=== PATIENT | male | born 1965 | race Caucasian/White ===

== ENCOUNTER 2021-10-22 22:18 | Inpatient (IN) | payer OTHER ==
[~2021-10-22] VITALS: Ht 170.2 cm; Wt 47.2 kg
[~2021-10-22 22:18] MED LIST: ACET-868 GT; ALBU2.5V13 IH; ATEN25TA; BACL10TA GT; BENZ2AMP3 GT; BISA10SU8 RC; DEXT1CAP3 GT; DOCU100C36 GT; ESOM40CA GT; HYDR-3973 PO; HYDR10SY12 GT; HYDR200T81 GT; LEVE500S9 GT; MAGN400O21 GT; MULT1TAB11 GT; TOPI50TA GT
--- NOTE | 2021-10-22 22:34 | NUR ---
MAY FROM [facility] BUN 112. PT AXO X0 ON TRACH COLLAR 2LPM. PT UNABLE TO PROVIDE ANY INFORMATION ON ASSESSMENT DUE TO MENTAL STATUS. PLACED ON MONITOR AND V/S WNL.
--- NOTE | 2021-10-22 22:41 | NUR ---
EMT AT BEDSIDE FOR EKG
--- NOTE | 2021-10-22 22:45 | NUR ---
20G IV ESTABLISHED RF. BLOOD DRAWN AND SENT TO LAB
--- NOTE | 2021-10-22 22:48 | NUR ---
JOAN COLLECTED AND SENT TO LAB
--- NOTE | 2021-10-22 22:55 | NUR ---
XRAY AT BEDSIDE
[2021-10-22 23:00] LABS: BASOPHILS % (AUTO) 0.2 % (0.0-2.0); EOSINOPHILS % (AUTO) 0.1 % (0.0-6.0); HEMATOCRIT 30 % (39-51); HEMOGLOBIN 9.9 g/dL (13.5-17.5); LYMPHOCYTES # (AUTO) 0.8 K/uL (0.8-4.8); LYMPHOCYTES % (AUTO) 8.5 % (20.0-44.0); MEAN CORPUSCULAR HGB CONC 33 g/dl (31.0-36.0); MEAN CORPUSCULAR VOLUME 91 fL (80-96); MONOCYTES # (AUTO) 0.8 K/uL (0.1-1.30); MONOCYTES % (AUTO) 7.7 % (2.0-12.0); NEUTROPHILS # (AUTO) 8.1 K/uL (1.8-8.9); NEUTROPHILS % (AUTO) 83.5 % (43.0-81.0); PLATELET COUNT (AUTO) 113 K/uL (150-450); RED BLOOD CELL COUNT(AUTO) 3.34 MIL/uL (4.5-6.0); WHITE BLOOD COUNT (AUTO) 9.7 K/uL (4.3-11.0)
--- NOTE | 2021-10-22 23:08 | NUR ---
URINE COLLECTED AND SENT TO LAB
[2021-10-22 23:14] LABS: ALBUMIN 2.3 g/dL (3.4-5.0); BILIRUBIN,DIRECT 0.1 mg/dL (0.0-0.2); BILIRUBIN,TOTAL 0.4 mg/dL (0.2-1.0); CALCIUM, SERUM 9.1 mg/dL (8.5-10.1); CREATININE 2.2 mg/dL (0.6-1.3); POTASSIUM 4.4 mmol/L (3.5-5.1); TOTAL PROTEIN, SERUM 7.9 g/dL (6.4-8.2)
--- NOTE | 2021-10-22 23:16 | NUR ---
BUN 116 DR. CARLOS MUHAMMAD AWARE
[2021-10-23 00:08] LABS: BILIRUBIN,URINE NEGATIVE (NEGATIVE); COLOR,URINE YELLOW (YELLOW); LEUKOCYTE ESTERASE ,URINE LARGE (NEGATIVE); NITRITE, URINE NEGATIVE (NEGATIVE); PH,URINE 8.5 (5.0-8.0); PROTEIN,URINE 100 mg/dl (NEGATIVE); UGLUCOSE NEGATIVE (NEGATIVE)
[2021-10-23 00:16] LABS: BACTERIA,URINE Moderate /HPF (None Seen); RBC,URINE 0-2 /HPF (0-2); SQUAMOUS EPITHELIAL CELL,UR Few /HPF (None Seen)
--- NOTE | 2021-10-23 01:31 | NUR ---
CALLED DR. AVERY ALVA AND REACH DIRECTOR OF AGRICULTURE PERRY HERNANDEZ NP. PER PERRY, DR. ALVA IS OUT OF TOWN AND GIVE PT TO [facility].
--- NOTE | 2021-10-23 01:33 | NUR ---
[facility] PAGED WAITING FOR CALL BACK FROM BRIGIDO JOHNSON
[2021-10-23] MEDS ORDERED: PIPERACILLIN /TAZOBACTAM 3.375 G in IV D5W 50 ML IV ONE ×2 (02:00→08:00)
--- NOTE | 2021-10-23 02:07 | NUR ---
EPIC PANEL PAGED
[2021-10-23] MEDS ORDERED: PIPERACILLIN /TAZOBACTAM 3.375 G VIAL IV ONE (02:15)
[2021-10-23] MEDS ORDERED: IV NS 0.9% 1,000 ML IV PRN (03:00)
[2021-10-23] MEDS ORDERED: Z GUARD REMEDY 4 OZ OINT TP PRN (03:00)
[2021-10-23] MEDS ORDERED: ONDANSETRON HCL/PF 4 MG/2 ML VIAL IVP PRN (03:00)
[2021-10-23] MEDS ORDERED: ALBUTEROL FS 2.5 MG/0.5 ML VIAL.NEB IH SCH (03:00)
--- NOTE | 2021-10-23 03:34 | NUR ---
REPORT GIVENT MISTY WOMACK RN FOR CATHLEEN
[2021-10-23] MEDS ORDERED: hydrOXYzine 10 MG TABLET ONE (03:43)
[2021-10-23] MEDS ORDERED: LEVETIRACETAM SOL (5 ML) 100 MG/ML UDC ONE (03:43)
[2021-10-23] MEDS ORDERED: ACETAMINOPHEN 325 MG TABLET ONE (03:44)
[2021-10-23] MEDS: LEVETIRACETAM SOL (5 ML) 100 MG/ML UDC PO SCH ×3 (03:50→20:48)
[2021-10-23] MEDS: hydrOXYzine HCL SYRUP 10 MG/5 ML UDC GT SCH ×4 (03:50→20:48)
[2021-10-23] MEDS: ACETAMINOPHEN 325 MG TABLET PO PRN (04:02)
--- NOTE | 2021-10-23 04:29 | NUR ---
pt transported to room 308 on cardiac per acls in stable condition
[2021-10-23 04:30] VITALS: BP 133/76
--- NOTE | 2021-10-23 05:08 | NUR ---
MEDICATION NON ADMINISTERED Atarax not given, not due for q8H dose.
--- NOTE | 2021-10-23 05:47 | NUR ---
ADMISSION 0430 Patient arrived to unit. Skin checked done, skin photos in the chart. Patient non verbal. Trach intact, T-piece to cool aerosol Oxygen 5L FiO2 28%. Patient has fever 100.4F cooling measures provided, was given Tylenol prior arrival to unit. Right wrist peripheral IV line, started IVF infusing. Sinus Tach in the Tele monitor HR 102. Suction secretion trach/oral, mucus large. Abdomen presence of GT, clamped. Turned and repositioned, sonia feet wound/scab. Wound consult. Will endorse to oncoming RN.
[2021-10-23] MEDS: BACLOFEN (10 MG) 10 MG TABLET GT SCH ×3 (06:49→17:49)
--- NOTE | 2021-10-23 07:00 | NUR ---
GORE INSERTER OPENING NOTES PATIENT LAYING IN BED, A/O X 0, TOLERATING WELL ON 5 LPM FiO2 28% FLOWING VIA T-PIECE, R WRIST # 20 G IV WITH NS INFUSING @ 100 ML/HR. TELE MONITOR IN PLACE READING NSR 72. NO S/S OF PAIN OR DISCOMFORT AT THIS TIME. G-TUBE IN PLACE, CLAMPED. SAFETY MEASURES IN PLACE: BED IN LOWEST LOCKED POSITION, SIDE RAILS UP X 2, CALL LIGHT WITHIN REACH. WILL CONTINUE TO MONITOR.
[2021-10-23 07:26] LABS: EOSINOPHILS % (AUTO) 0.6 % (0.0-6.0); HEMATOCRIT 33 % (39-51); HEMOGLOBIN 11.1 g/dL (13.5-17.5); LYMPHOCYTES # (AUTO) 0.2 K/uL (0.8-4.8); LYMPHOCYTES % (AUTO) 2.3 % (20.0-44.0); MEAN CORPUSCULAR HGB CONC 33 g/dl (31.0-36.0); MEAN CORPUSCULAR VOLUME 96 fL (80-96); MONOCYTES # (AUTO) 0.6 K/uL (0.1-1.30); MONOCYTES % (AUTO) 7.9 % (2.0-12.0); NEUTROPHILS # (AUTO) 6.5 K/uL (1.8-8.9); NEUTROPHILS % (AUTO) 89.2 % (43.0-81.0); RED BLOOD CELL COUNT(AUTO) 3.46 MIL/uL (4.5-6.0); WHITE BLOOD COUNT (AUTO) 7.3 K/uL (4.3-11.0)
[2021-10-23 07:30] LABS: PLATELET COUNT (AUTO) 44 K/uL (150-450)
[2021-10-23 08:00] VITALS: BP 145/73
[2021-10-23 08:19] LABS: CALCIUM, SERUM 9.5 mg/dL (8.5-10.1); CREATININE 2.1 mg/dL (0.6-1.3); MAGNESIUM 3.8 mg/dL (1.8-2.4); PHOSPHORUS 2.9 mg/dL (2.5-4.9); POTASSIUM 6.1 mmol/L (3.5-5.1)
[2021-10-23] MEDS: PIPERACILLIN /TAZOBACTAM 3.375 G in IV D5W 100 ML IV SCH ×2 (08:44→15:12)
[2021-10-23] MEDS: BENZTROPINE MESYLATE (1 MG) 1 MG TABLET PO SCH ×3 (08:45→16:29)
[2021-10-23] MEDS: ATENOLOL 25 MG TABLET GT SCH (08:45)
[2021-10-23] MEDS: MULTIVITAMIN/LUTEIN/MINERALS 1 TAB PO SCH (08:46)
[2021-10-23] MEDS: TOPIRAMATE 25 MG TABLET PO SCH ×2 (08:46→16:29)
[2021-10-23] MEDS: PANTOPRAZOLE 40 MG/PACK PACK PO SCH (08:46)
[2021-10-23] MEDS: HYDROXYCHLOROQUINE 200 MG TABLET GT SCH ×2 (08:47→16:33)
[2021-10-23] MEDS: MAGNESIUM HYDROXIDE 30 ML UDC GT SCH (08:47)
[2021-10-23] MEDS: DOCUSATE SODIUM 100 MG CAPSULE PO SCH (08:47)
[2021-10-23] MEDS ORDERED: Medication Not On Formulary EA (Dextromethorphan Hbr/Quinidine (Nuedexta 20-10 Mg Capsul GT SCH (09:00)
--- NOTE | 2021-10-23 09:00 | NUR ---
CLIP WRAPPER NOTES RECEIVED CRITICAL VALUE PLATELET 44, REPORTED TO MD NIDA VARELA. NO NEW ORDERS AT THIS TIME.
[2021-10-23] MEDS ORDERED: ALBU8.5H8 IH ×2 (09:37)
[2021-10-23] MEDS ORDERED: OMEP20CA15 GT (09:37)
[2021-10-23] MEDS ORDERED: AMLO2.5T4 GT (09:37)
[2021-10-23] MEDS ORDERED: CHLO473M3 MM (09:37)
[2021-10-23] MEDS ORDERED: QUET50TA GT (09:37)
[2021-10-23] MEDS ORDERED: FERR325T23 GT (09:37)
[2021-10-23] MEDS ORDERED: TRAM50TA2 GT (09:37)
[2021-10-23 09:48] LABS: LYMPHOCYTES % (MANUAL) 12 % (16-48); MONOCYTES % (MANUAL) 2 % (0-11.0); NEUTROPHILS % (MANUAL) 86 (42-76)
[2021-10-23] MEDS: JEVITY 1.2 CAL 1,000 ML BOTTLE GT PRN (12:01)
[2021-10-23] MEDS: IV 1/2NS 1000 ML 1,000 ML IV PRN (12:20)
[2021-10-23 16:00] VITALS: BP 123/56
--- NOTE | 2021-10-23 19:37 | NUR ---
RN OPENING NOTES RECEIVED PT IN BED, EYES OPEN, NONVERBAL. AOx1. ON TRACH PIECE 5 L/MIN AND TOLERATING WELL. NO SOB NOTED. NO S/SX OF RESPIRATORY DISTRESS NOTED. TELE MONITOR DETECTS SINUS RHYTHM. IV ACCESS IN RFA #20G RUNNING 1/2 NS @ 100 ML/HR. G-TUBE IN PLACE WITH JEVITY 1.2 RUNNING @ 60 ML/HR. SAFETY PRECAUTIONS IN PLACE: BED IN LOWEST, LOCKED POSITION, SIDERAILS UPx2, AND BRAKES ON. PER SUBACUTE NURSE, FAMILY MADE AWARE OF TRANSFER. TABLE AND CALL LIGHT WITHIN REACH. ALL NEEDS MET AT THIS TIME.
[2021-10-23 20:00] VITALS: BP 136/60
[2021-10-24] VITALS: BP 113/58
[2021-10-24] MEDS: PIPERACILLIN /TAZOBACTAM 3.375 G in IV D5W 100 ML IV SCH ×3 (00:44→16:13)
[2021-10-24] MEDS: BACLOFEN (10 MG) 10 MG TABLET GT SCH ×4 (00:46→17:43)
[2021-10-24 04:00] VITALS: BP 118/65
[2021-10-24] MEDS: hydrOXYzine HCL SYRUP 10 MG/5 ML UDC GT SCH ×3 (05:10→21:46)
[2021-10-24 06:03] LABS: EOSINOPHILS % (AUTO) 0.2 % (0.0-6.0); HEMATOCRIT 32 % (39-51); LYMPHOCYTES # (AUTO) 1.1 K/uL (0.8-4.8); LYMPHOCYTES % (AUTO) 9.7 % (20.0-44.0); MEAN CORPUSCULAR HGB CONC 31 g/dl (31.0-36.0); MEAN CORPUSCULAR VOLUME 92 fL (80-96); MONOCYTES # (AUTO) 1.2 K/uL (0.1-1.30); MONOCYTES % (AUTO) 9.9 % (2.0-12.0); NEUTROPHILS # (AUTO) 9.4 K/uL (1.8-8.9); NEUTROPHILS % (AUTO) 80.2 % (43.0-81.0); PLATELET COUNT (AUTO) 129 K/uL (150-450); RED BLOOD CELL COUNT(AUTO) 3.47 MIL/uL (4.5-6.0); WHITE BLOOD COUNT (AUTO) 11.7 K/uL (4.3-11.0)
[2021-10-24 06:19] LABS: CALCIUM, SERUM 9.3 mg/dL (8.5-10.1); CREATININE 2.2 mg/dL (0.6-1.3); MAGNESIUM 3.3 mg/dL (1.8-2.4); PHOSPHORUS 3.4 mg/dL (2.5-4.9); POTASSIUM 4.1 mmol/L (3.5-5.1)
--- NOTE | 2021-10-24 07:00 | NUR ---
RN CLOSING NOTES PT IN BED, EYES OPEN, NONVERBAL. AOx1. ON TRACH PIECE 5 L/MIN AND TOLERATING WELL. NO SOB NOTED. NO S/SX OF RESPIRATORY DISTRESS NOTED. TELE MONITOR DETECTS SINUS RHYTHM. IV ACCESS IN RFA #20G RUNNING 1/2 NS @ 100 ML/HR. G-TUBE IN PLACE WITH JEVITY 1.2 RUNNING @ 60 ML/HR. ALL ORDERS CARRIED OUT. ALL NEEDS MET. PT KEPT CLEAN AND DRY. SAFETY PRECAUTIONS IN PLACE: BED IN LOWEST, LOCKED POSITION, SIDERAILS UPx2, AND BRAKES ON. PER SUBACUTE NURSE, FAMILY MADE AWARE OF TRANSFER. TABLE AND CALL LIGHT WITHIN REACH. WILL ENDORSE TO ONCOMING SHIFT FOR CATHLEEN.
--- NOTE | 2021-10-24 07:10 | NUR ---
PANEL CUTTER OPENING NOTES PATIENT LAYING IN BED, ALERT BUT NON-VERBAL PER BASELINE, TOLERATING WELL ON TRACH T-PIECE AT 5 LPM O2 COOL AEROSOL. TELE MONITOR READING SR. RFA # 20 G IV INFUSING 1/2 NS @ 100 ML/HR. G-TUBE IN PLACE WITH FEEDING PAUSED AT THIS TIME. SAFETY MEASURES IN PLACE: BED IN LOWEST LOCKED POSITION, SIDE RAILS UP X 2, CALL LIGHT WITHIN REACH. WILL CONTINUE TO MONITOR.
--- NOTE | 2021-10-24 08:38 | NUR ---
LOTTERY OFFICE MANAGER NOTES CHEST XR PERFORMED DUE TO PATIENT COUGHING UP FLUID DURING FACILITIES MAINTENANCE SUPERVISOR. CXR RESULTED WITH NORMAL IMPRESSION. TUBE FEEDING RESUMED @ 20 ML/HR. Addendum: 10/24/21 at 1422 by BERNABE MORIN RN JEVITY 1.2 GINA TUBE FEEDING
[2021-10-24] MEDS: ATENOLOL 25 MG TABLET GT SCH (08:42)
[2021-10-24] MEDS: MULTIVITAMIN/LUTEIN/MINERALS 1 TAB PO SCH (08:42)
[2021-10-24] MEDS: HYDROXYCHLOROQUINE 200 MG TABLET GT SCH ×2 (08:43→16:38)
[2021-10-24] MEDS: MAGNESIUM HYDROXIDE 30 ML UDC GT SCH (08:43)
[2021-10-24] MEDS: TOPIRAMATE 25 MG TABLET PO SCH ×2 (08:43→16:26)
[2021-10-24] MEDS: DOCUSATE SODIUM 100 MG CAPSULE PO SCH (08:43)
[2021-10-24] MEDS: BENZTROPINE MESYLATE (1 MG) 1 MG TABLET PO SCH ×3 (08:43→16:26)
[2021-10-24] MEDS: LEVETIRACETAM SOL (5 ML) 100 MG/ML UDC PO SCH ×2 (08:43→21:46)
[2021-10-24] MEDS: PANTOPRAZOLE 40 MG/PACK PACK PO SCH (08:43)
--- NOTE | 2021-10-24 13:43 | NUR ---
TRANSITIONAL KINDERGARTEN TEACHER NOTES PATIENT TUBE FEEDING WAS INCREASED GRADUALLY OVER SEVERAL HOURS, PATIENT NOW TOLERATING WELL AT 40 ML/HR. WILL CONTINUE TO ADVANCE RATE TOLERATED.
--- NOTE | 2021-10-24 19:30 | NUR ---
SALES MANAGER [place] OPENING NOTE RECEIVED PATIENT IN BED. OBTUNDED, EYES OPEN. ON T-PIECE IN 5LPM OF AEROSOL, EXHIBITING A LOT OF PHLEGM -- SUCTIONED FOR NOW. NOT EXHIBITING PAIN VIA FLACC. TELE MONITOR READING SR WITH 95 BPM. TUBE FEEDING OFF AT THIS TIME-- WILL RESUME @2230 ENDORSED. R. FA #20G RUNNING [employer] STILL AT THIS TIME. SAFETY IN PLACE. WILL CONTINUE WITH PATIENT'S PLAN OF CARE.
[2021-10-25] MEDS: BACLOFEN (10 MG) 10 MG TABLET GT SCH ×4 (00:11→18:25)
[2021-10-25] MEDS: PIPERACILLIN /TAZOBACTAM 3.375 G in IV D5W 100 ML IV SCH ×2 (00:14→09:58)
[2021-10-25] MEDS: ACETAMINOPHEN 325 MG TABLET PO PRN (03:27)
--- NOTE | 2021-10-25 03:37 | NUR ---
PATIENT EXHIBITING PAIN VIA FLACC. FREQUENT FROWN, RESTLESS. GIVEN TYLENOL PRN ORDERED.
[2021-10-25 04:00] VITALS: BP 111/52
[2021-10-25] MEDS: hydrOXYzine HCL SYRUP 10 MG/5 ML UDC GT SCH ×3 (05:09→21:56)
--- NOTE | 2021-10-25 07:12 | NUR ---
PATHOLOGIST CLOSING NOTE ALL NEEDS ATTENDED. WILL GIVE REPORT TO MORNING RN FOR CONTINUITY OF CARE.
--- NOTE | 2021-10-25 07:50 | NUR ---
CALENDER MACHINE OPERATOR HELPER OPENING NOTE RECEIVED PATIENT IN BED AWAKE. OBTUNDED, EYES OPEN. ON T-PIECE IN 5LPM OF AEROSOL. NO S/S OF SOB AND ACUTE DISTRESS AT THE MOMENT. NOT EXHIBITING PAIN VIA FLACC. TELE MONITOR READING SR WITH HR = 93BPM. IV ACCESS AT RFA #20 INFUSING 1/2 NS @ 100 ML/HR. NOTED G-TUBE FEEDING JEVITY 1.2@ 60ML/HR, OFF AT 1830 [address]ED[address] SAFETY MEASURES IN PLACE,WILL CONTINUE WITH PATIENT'S PLAN OF CARE.
[2021-10-25] MEDS: LEVETIRACETAM SOL (5 ML) 100 MG/ML UDC PO SCH ×2 (09:35→21:57)
[2021-10-25] MEDS: MULTIVITAMIN/LUTEIN/MINERALS 1 TAB PO SCH (09:35)
[2021-10-25] MEDS: ATENOLOL 25 MG TABLET GT SCH (09:35)
[2021-10-25] MEDS: DOCUSATE SODIUM 100 MG CAPSULE PO SCH (09:35)
[2021-10-25] MEDS: PANTOPRAZOLE 40 MG/PACK PACK PO SCH (09:35)
[2021-10-25] MEDS: MAGNESIUM HYDROXIDE 30 ML UDC GT SCH (09:35)
[2021-10-25] MEDS: TOPIRAMATE 25 MG TABLET PO SCH ×2 (09:35→18:25)
[2021-10-25] MEDS: BENZTROPINE MESYLATE (1 MG) 1 MG TABLET PO SCH ×3 (09:35→18:25)
[2021-10-25] MEDS: HYDROXYCHLOROQUINE 200 MG TABLET GT SCH ×2 (10:01→18:25)
[2021-10-25 10:02] VITALS: BP 128/63
[2021-10-25] MEDS: HEPARIN SODIUM, PORCINE 5000 UNITS/1 ML VIAL SQ SCH ×2 (10:03→18:26)
[2021-10-25 13:19] VITALS: BP 109/61
[2021-10-25] MEDS: JEVITY 1.2 CAL 1,000 ML BOTTLE GT PRN (15:50)
[2021-10-25 17:53] VITALS: BP 123/55
[2021-10-25] MEDS: IV 1/2NS 1000 ML 1,000 ML IV PRN (19:47)
[2021-10-25 20:00] VITALS: BP 124/51
--- NOTE | 2021-10-25 20:00 | NUR ---
RN NOTE: AWAKE. EYES OPEN SPONTANEOUSLY. MOIST ORAL MUCOSA. UNLABORED BREATHING. TRACH WITH WITH COOL AEROSOL AT 5 LPM O2. TRACH AND ORAL SECRETIONS WHITE MODERATE THICK. SUCTIONED NEEDED. HOB ELEVATED 45 DEGREE ANGLE. GT FEEDING OFF AT THIS TIME. GT IN PLACE PATENT AND NO RESIDUAL. IV SITE ON RIGHT FOREARM G20 RUNNING IVF 1/2 NS AT 100ML/HR. BILATERAL HALF SIDE RAILS UP X2. BED LOCKED, EXIT ALARM ON, IN LOW POSITION. FALL PRECAUTIONS MAINTAINED. CALL LIGHT IN REACH.
--- NOTE | 2021-10-25 20:20 | NUR ---
COSMETICIAN CLOSING NOTE PATIENT IN BED AWAKE. OBTUNDED, EYES OPEN. ON T-PIECE IN 5LPM OF AEROSOL. NO S/S OF SOB AND ACUTE DISTRESS AT THE MOMENT. NOT EXHIBITING PAIN VIA FLACC. TELE MONITOR READING SR WITH HR =91 BPM. IV ACCESS AT RFA #20 INFUSING 1/2 NS @ 100 ML/HR. NOTED G-TUBE FEEDING JEVITY 1.2@ 60ML/HR, OFF AT 1830 ENDORSED. SAFETY MEASURES IN PLACE, ENDORSED TO PM SHIFT.
[2021-10-25] MEDS ORDERED: MEROPENEM 1 G in IV NS 0.9% 100 ML IV SCH (21:00)
[2021-10-25] MEDS ORDERED: MEROPENEM 500 MG VIAL IV ONE (22:26)
[2021-10-25] MEDS: MEROPENEM 500 MG in IV NS 0.9% 50 ML IV SCH (23:25)
[2021-10-26] VITALS: BP 118/57
[2021-10-26] MEDS: BACLOFEN (10 MG) 10 MG TABLET GT SCH ×4 (00:03→18:24)
[2021-10-26 04:00] VITALS: BP 135/52
[2021-10-26] MEDS: hydrOXYzine HCL SYRUP 10 MG/5 ML UDC GT SCH ×3 (05:10→21:00)
[2021-10-26] MEDS: ACETAMINOPHEN 325 MG TABLET PO PRN (05:12)
--- NOTE | 2021-10-26 06:34 | NUR ---
RN CLOSING NOTE: AWAKE. EYES OPEN SPONTANEOUSLY. MOIST ORAL MUCOSA. UNLABORED BREATHING. TRACH WITH WITH COOL AEROSOL AT 5 LPM O2. TRACH AND ORAL SECRETIONS WHITE MODERATE THICK. SUCTIONED NEEDED. HOB ELEVATED 45 DEGREE ANGLE. GT FEEDING ON RUNNING JEVITY 1.2 AT 60ML/HR. AT THIS TIME. GT IN PLACE PATENT AND NO RESIDUAL. ASPIRATION PRECAUTIONS MAINTAINED. IV SITE ON RIGHT FOREARM G20 RUNNING IVF 1/2 NS AT 100ML/HR. KEPT CLEAN AND DRY. TURNED AND REPOSITIONED. BILATERAL HALF SIDE RAILS UP X2. BED LOCKED, EXIT ALARM ON, IN LOW POSITION. FALL PRECAUTIONS MAINTAINED. CALL LIGHT IN REACH.
[2021-10-26] MEDS: IV 1/2NS 1000 ML 1,000 ML IV PRN (06:44)
--- NOTE | 2021-10-26 07:41 | NUR ---
SURGICAL ORDERLY OPENING NOTE RECEIVED PATIENT IN BED AWAKE. EYES OPEN. ON T-PIECE IN 5LPM OF AEROSOL. NO S/S OF SOB AND ACUTE DISTRESS AT THE MOMENT. NOT EXHIBITING PAIN VIA FLACC. TELE MONITOR READING SR WITH HR = 69BPM. IV ACCESS AT RFA #20 INFUSING 1/2 NS @ 100 ML/HR. NOTED G-TUBE FEEDING JEVITY 1.2@ 60ML/HR, WILL TURN OFF 1830 ENDORSED. SAFETY MEASURES IN PLACE,WILL CONTINUE WITH PATIENT'S PLAN OF CARE.
[2021-10-26 08:00] VITALS: BP 119/61
--- NOTE | 2021-10-26 08:20 | NUR ---
WOUND CARE CONSULT: PT PRESENTS WITH SACRAL INTACT DEEP TISSUE INJURY WITH SCARRING, DRY WOUNDS TO BACK, DRY LESION TO RT FOREHEAD AND DRY WOUNDS/SCABS TO FEET, ALL PRESENT ON ADMISSION. DR MANSFIELD NOTIFIED OF SURGICAL CONSULT REQUEST. RECOMMENDATIONS MADE FOR SKIN PROTECTION. DISCUSSED WITH NURSING STAFF. PT IS ON JULIANA ISOFLEX LOW AIRLOSS BED. MD IN AGREEMENT WITH PLAN OF CARE.
[2021-10-26] MEDS: PANTOPRAZOLE 40 MG/PACK PACK PO SCH (08:52)
[2021-10-26] MEDS: MULTIVITAMIN/LUTEIN/MINERALS 1 TAB PO SCH (08:52)
[2021-10-26] MEDS: BENZTROPINE MESYLATE (1 MG) 1 MG TABLET PO SCH ×3 (08:52→18:20)
[2021-10-26] MEDS: TOPIRAMATE 25 MG TABLET PO SCH ×2 (08:52→18:20)
[2021-10-26] MEDS: ATENOLOL 25 MG TABLET GT SCH (08:53)
[2021-10-26] MEDS: HYDROXYCHLOROQUINE 200 MG TABLET GT SCH (08:54)
[2021-10-26] MEDS: LEVETIRACETAM SOL (5 ML) 100 MG/ML UDC PO SCH ×2 (08:55→21:37)
[2021-10-26] MEDS: MAGNESIUM HYDROXIDE 30 ML UDC GT SCH (08:55)
[2021-10-26] MEDS: HEPARIN SODIUM, PORCINE 5000 UNITS/1 ML VIAL SQ SCH ×2 (08:56→18:21)
[2021-10-26 09:05] LABS: BASOPHILS % (AUTO) 0.1 % (0.0-2.0); EOSINOPHILS % (AUTO) 2.7 % (0.0-6.0); HEMATOCRIT 28 % (39-51); LYMPHOCYTES % (AUTO) 13.9 % (20.0-44.0); MEAN CORPUSCULAR HGB CONC 33 g/dl (31.0-36.0); MEAN CORPUSCULAR VOLUME 91 fL (80-96); MONOCYTES # (AUTO) 0.8 K/uL (0.1-1.30); MONOCYTES % (AUTO) 11.5 % (2.0-12.0); NEUTROPHILS # (AUTO) 5.3 K/uL (1.8-8.9); NEUTROPHILS % (AUTO) 71.8 % (43.0-81.0); PLATELET COUNT (AUTO) 97 K/uL (150-450); RED BLOOD CELL COUNT(AUTO) 3.05 MIL/uL (4.5-6.0); WHITE BLOOD COUNT (AUTO) 7.4 K/uL (4.3-11.0)
[2021-10-26] MEDS: MEROPENEM 500 MG in IV NS 0.9% 50 ML IV SCH ×2 (09:14→21:37)
[2021-10-26] MEDS: DOCUSATE SODIUM 100 MG CAPSULE PO SCH (09:14)
[2021-10-26 09:16] LABS: CALCIUM, SERUM 8.4 mg/dL (8.5-10.1); CREATININE 1.6 mg/dL (0.6-1.3); POTASSIUM 3.9 mmol/L (3.5-5.1)
[2021-10-26 12:00] VITALS: BP 122/76
[2021-10-26 15:08] LABS: BASOPHILS % (MANUAL) 0 % (0.0-2.0); EOSINOPHILS % (MANUAL) 3 % (0-4); LYMPHOCYTES % (MANUAL) 15 % (16-48); MONOCYTES % (MANUAL) 10 % (0-11.0); NEUTROPHILS % (MANUAL) 72 (42-76)
[2021-10-26 16:00] VITALS: BP 110/66
--- NOTE | 2021-10-26 19:17 | NUR ---
FORMULATION CHEMIST CLOSING NOTE: PATIENT IN BED AWAKE EYES OPEN. ON T-PIECE IN 5LPM OF AEROSOL. NO S/S OF SOB AND ACUTE DISTRESS AT THE MOMENT. NOT EXHIBITING PAIN VIA FLACC. TELE MONITOR READING SR WITH HR = 64BPM. IV ACCESS AT RFA #20, SL, PATENT AND FLUSHING. NOTED G-TUBE FEEDING JEVITY 1.2@ 60ML/HR, TURNED OFF 1830 ENDORSED. ALL MEDS GIVEN, MADE PT COMFORTABLE AND CLEAN. SAFETY MEASURES IN PLACE, WILL ENDORSE TO PM SHIFT.
[2021-10-26 20:00] VITALS: BP 123/59
--- NOTE | 2021-10-26 20:00 | NUR ---
LABORER HOISTING NOTES RECEIVED ON BED,NON VERBAL,OPEN EYES,ON TRACH TO COOL AEROSOL,5L/,FIO2 28%,BREATHING NON LABORED.GT FEEDING OFF THIS TIME,ON AT 2230.FLUSHED WITH WATER,INTACT AND PATENT.NO RESIDUAL VOLUME NOTED.PRESENT IVF 1/2 NS AT 100ML/HR RATE,INFUSING ON RIGHT FORE ARM SALINE LINE LOCK VIA IV PUMP,SITE PATENT.HOB ELEVATED FOR ASPIRATION PRECAUTION.CALL LIGHT IN REACH,NEEDS ANTICIPATED.
--- NOTE | 2021-10-26 21:00 | NUR ---
STATE TROOPER NOTES ATARAX 25MG/GT NOT GIVEN.DRUGS NOT AVAILABLE.IN THE OMNICELLE.REQUEST MEDS TO THE NURSING MANAGER INVESTMENT BANKING,AND SAYS,NO ATARAX SYRUP AVAILABLE.
[2021-10-26] MEDS: JEVITY 1.2 CAL 1,000 ML BOTTLE GT PRN (22:37)
[2021-10-27] VITALS: BP 114/72
[2021-10-27] MEDS: BACLOFEN (10 MG) 10 MG TABLET GT SCH ×4 (00:01→17:15)
[2021-10-27 04:00] VITALS: BP 110/56
--- NOTE | 2021-10-27 04:30 | NUR ---
SAFETY SCIENTIST NOTES MORNING CARE RENDERED,SUCTION MUCUS NEEDED,REPOSITIONED
[2021-10-27] MEDS: IV 1/2NS 1000 ML 1,000 ML IV PRN (04:58)
[2021-10-27] MEDS: hydrOXYzine HCL SYRUP 10 MG/5 ML UDC GT SCH ×2 (05:00→13:42)
--- NOTE | 2021-10-27 06:22 | NUR ---
HANDKERCHIEF MAKER NOTES ON BED AWAKE,NON VERBAL,CALM AND QUIET,GT FEEDING TOLERATED WELL,NO DIARRHEA NOTED,HOB ELEVATED.NEGATIVE FOR ASPIRATION,IN NO ACUTE DISTRESS.
--- NOTE | 2021-10-27 07:04 | NUR ---
HOME ECONOMIST CONSUMER SERVICE OPENING NOTES RECEIVED PATIENT AWAKE IN BED IN NO ACUTE SIGNS OF DISTRESS. HOB ELEVATED. PT IS NON-VERBAL AND ON T-PIECE IN 5LPM OF COOL AEROSOL, TOLERATING WELL WITH NO S/S OF SOB NOTED. PT IS CALM WITH NO S/S OF PAIN LIKE GRIMACING OR MOANING NOTED AT THIS TIME. TELE MONITOR READING SHOWS NSR WITH HR OF 70 BPM, NO S/S OF CARDIAC DISTRESS NOTED. IV ACCESS ON RFA #20G INTACT AND INFUSING 1/2 NS @ 100 ML/HR. G-TUBE IN PLACE WITH FEEDING OF JEVITY 1.2@ 60ML/HR, TOLERATING WELL. ASPIRATION PRECAUTIONS MAINTAINED. SAFETY MEASURES IN PLACE: BED IN LOWEST LOCKED POSITION, SIDE-RAILS UP X3M BED ALARM ON AND CALL LIGHT W/I EASY REACH. WILL CONTINUE WITH PLAN OF CARE.
[2021-10-27 08:00] VITALS: BP 123/68
[2021-10-27] MEDS: LEVETIRACETAM SOL (5 ML) 100 MG/ML UDC PO SCH (08:29)
[2021-10-27] MEDS: MULTIVITAMIN/LUTEIN/MINERALS 1 TAB PO SCH (08:29)
[2021-10-27] MEDS: MAGNESIUM HYDROXIDE 30 ML UDC GT SCH (08:29)
[2021-10-27] MEDS: BENZTROPINE MESYLATE (1 MG) 1 MG TABLET PO SCH ×3 (08:30→16:49)
[2021-10-27] MEDS: DOCUSATE SODIUM 100 MG CAPSULE PO SCH (08:31)
[2021-10-27] MEDS: ATENOLOL 25 MG TABLET GT SCH (08:31)
[2021-10-27] MEDS: TOPIRAMATE 25 MG TABLET PO SCH ×2 (08:32→16:49)
[2021-10-27] MEDS: PANTOPRAZOLE 40 MG/PACK PACK PO SCH (08:32)
[2021-10-27] MEDS: HEPARIN SODIUM, PORCINE 5000 UNITS/1 ML VIAL SQ SCH ×2 (08:34→16:49)
[2021-10-27] MEDS: MEROPENEM 500 MG in IV NS 0.9% 50 ML IV SCH (08:40)
--- NOTE | 2021-10-27 12:10 | NUR ---
RN NOTES MIDLINE G#18 INSERTED TO CALE BY PICC GUICHO CARDOSO
[2021-10-27 13:29] LABS: BASOPHILS % (AUTO) 0.1 % (0.0-2.0); EOSINOPHILS % (AUTO) 0.7 % (0.0-6.0); HEMATOCRIT 26 % (39-51); HEMOGLOBIN 8.6 g/dL (13.5-17.5); LYMPHOCYTES # (AUTO) 1.2 K/uL (0.8-4.8); LYMPHOCYTES % (AUTO) 11.6 % (20.0-44.0); MEAN CORPUSCULAR HGB CONC 33 g/dl (31.0-36.0); MEAN CORPUSCULAR VOLUME 91 fL (80-96); MONOCYTES # (AUTO) 0.7 K/uL (0.1-1.30); MONOCYTES % (AUTO) 7.3 % (2.0-12.0); NEUTROPHILS % (AUTO) 80.3 % (43.0-81.0); PLATELET COUNT (AUTO) 105 K/uL (150-450); RED BLOOD CELL COUNT(AUTO) 2.91 MIL/uL (4.5-6.0)
--- NOTE | 2021-10-27 15:09 | NUR ---
RN NOTES RAPID COVID 19 ANTIGEN SPECIMEN COLLECTED AND BROUGHT TO LAB. WILL F/U RESULTS
[2021-10-27 16:00] VITALS: BP 122/67
--- NOTE | 2021-10-27 16:24 | NUR ---
RN NOTES CALLED [facility] AND GAVE REPORT TO EDGAR FERREIRA. INFORMED ALSO PT'S BROTHER JOON DAY OF PT'S DC TODAY.
--- NOTE | 2021-10-27 18:57 | NUR ---
AUTO TESTER CLOSING NOTES PATIENT IN BED AWAKE AT THIS TIME. HOB ELEVATED. PT IS NON-VERBAL, OPEN EYES AND ON T-PIECE IN 5LPM OF COOL AEROSOL, TOLERATING WELL WITH NO S/S OF SOB NOTED TELE MONITOR READING SHOWS NSR WITH HR OF 70'S DURING SHIFT, NO S/S OF CARDIAC DISTRESS NOTED. CALE MIDLINE G#18 INTACT, G-TUBE IN PLACE WITH FEEDING OF JEVITY 1.2@ 60ML/HR X20HRS DAILY, TURNED OFF AT 1830. ASPIRATION PRECAUTIONS MAINTAINED. PT TURNED AND REPOSITIONED Q 2HRS AND PRN. ALL NEEDS AND CARRE PROVIDED WELL. SAFETY MEASURES IN PLACE: BED IN LOWEST LOCKED POSITION, SIDE-RAILS UP X3M BED ALARM ON AND CALL LIGHT W/I EASY REACH. PT FO D/C TO [facility] TONIGHT. WILL ENDORSE TO HOSPITAL MONITOR NURSE.
--- NOTE | 2021-10-27 20:28 | NUR ---
CARD BRUSHER NOTE PATIENT IN BED AWAKE AT THIS TIME. HOB ELEVATED. PT IS NON-VERBAL, OPEN EYES AND ON T-PIECE IN 5LPM OF COOL AEROSOL, TOLERATING WELL WITH NO S/S OF SOB NOTED TELE MONITOR READING SHOWS NSR WITH HR OF 70'S DURING SHIFT, NO S/S OF CARDIAC DISTRESS NOTED. CALE MIDLINE G#18 INTACT, G-TUBE IN PLACE WITH FEEDING OF JEVITY 1.2@ 60ML/HR X20HRS DAILY. SAFETY MEASURES IN PLACE: BED IN LOWEST LOCKED POSITION, SIDE-RAILS UP X3M BED ALARM ON AND CALL LIGHT W/I EASY REACH. PT FOR D/C TO [facility] PT PICKED UP AT THIS TIME REPORT GIVEN TO TRANSPORT ALL PAPERWORK PROVIDED. Addendum: 10/27/21 at 2041 by ZACH PERALES RN PT TRANSPORTED WITH RT [facility]
[2021-10-27] MEDS ORDERED: MEROPENEM 1 G in IV NS 0.9% 100 ML IV SCH (21:00)
== END 2021-10-27 21:00 | DRG 137 ==
LOC: ER 22:28 → TELE 10-23 03:24
PROVIDERS: ADMIT Student in an Organized Health Care Education/Training Program; ATTEND Internal Medicine
PROC: 05HB33Z Insertion of Infusion Device into Right Basilic Vein, Percutaneous Approach (ICD-10-PCS; principal; 2021-10-27)
DX: J69.0 Pneumonitis due to inhalation of food and vomit (principal); N17.0 Acute kidney failure with tubular necrosis; J96.90 Respiratory failure, unspecified, unspecified whether with hypoxia or hypercapnia; G93.40 Encephalopathy, unspecified; J95.851 Ventilator associated pneumonia; K85.90 Acute pancreatitis without necrosis or infection, unspecified; E44.0 Moderate protein-calorie malnutrition; D69.6 Thrombocytopenia, unspecified; E87.0 Hyperosmolality and hypernatremia; Z93.0 Tracheostomy status; E87.5 Hyperkalemia; N39.0 Urinary tract infection, site not specified; Z93.1 Gastrostomy status; R13.10 Dysphagia, unspecified; I10 Essential (primary) hypertension; R33.9 Retention of urine, unspecified; Z79.51 Long term (current) use of inhaled steroids; Z79.899 Other long term (current) drug therapy; E88.09 Other disorders of plasma-protein metabolism, not elsewhere classified; Y95 Nosocomial condition; Z82.49 Family history of ischemic heart disease and other diseases of the circulatory system; Z20.822 Contact with and (suspected) exposure to COVID-19; Y84.8 Other medical procedures as the cause of abnormal reaction of the patient, or of later complication, without mention of misadventure at the time of the procedure; Y82.9 Unspecified medical devices associated with adverse incidents; Y92.129 Unspecified place in nursing home as the place of occurrence of the external cause; D64.9 Anemia, unspecified; Z16.12 Extended spectrum beta lactamase (ESBL) resistance; F09 Unspecified mental disorder due to known physiological condition
CPT/HCPCS: 31720; 36415; 71045-TC; 76770-TC; 80048-TC; 80061-TC; 80076-TC; 81001; 83690-TC; 83735-TC; 84100-TC; 85025-TC; 85730-TC; 87081-TC; 87086-TC; 87186-TC; 94640-TC; 94664-TC; 94760-TC; 94799-TC; 99082-TC; A4623; C9803; G0378; J1644; J1953; J2185; J2543; J3490; J7030; J7060; Q0177